=== PATIENT | female | born 1960 | race Caucasian/White ===

== ENCOUNTER 2016-07-05 14:35 | Emergency (ER) | payer OTHER ==
[~2016-07-05] VITALS: Ht 170.2 cm; Wt 119.1 kg
[2016-07-05 14:39] VITALS: BP 138/94; PULSE 104; RESP 18; O2SAT 99
--- NOTE | 2016-07-05 14:50 | ED.REPORT ---
HPI-Abd Pain F 40 and Over Date of Service Jul 05, 2016 ED Provider: History of Present Illness: upper abd pain ongoing for 3 days, frequent burping, no vomiting, worse with eating, primary care is min. normally healthy, chrons in remission for 15 years, 01/31 Nursing Notes Stated Complaint: ABD PAIN Chief Complaint: Female Abdominal Pain Nursing Notes Reviewed: Yes Allergies: Coded Allergies: Penicillins (Verified Allergy, Unknown, 07/05/16) General Time Seen by MD: 14:49 Chief Complaint Abdominal pain Hx Obtained From: Patient Sudden in Onset?: No Onset Occurred: 3 days ago Context of Onset: Eating Past Medical History Past Medical History Denies: Asthma Past Surgical History denies Smoking History Current Every Day Smoker (1 pack a day 35 years) Social History Alcohol Use: Denies alcohol use Drug Use: Denies drug use Other Social History: Occupation work at [employer] 07/05/2016 Review of Systems Basic Review of Systems Eyes: Vision NL, No discharge ENT: Hearing NL, No pain, No nasal congestion, No pharyngeal pain Hematologic: No bleeding, No bruising Endocrine: No cold intolerance, No heat intolerance, No weight gain, No weight loss Skin: No bruising, No rash, No itch Allergy / Immune: No allergy Neurologic: NL mental status, No weakness, No numbness Psychiatric: Normal thought content Physical Exam Vital Signs Vital Signs (First) Date Time Temp Pulse Resp B/P Pulse Ox O2 Delivery O2 Flow Rate FiO2 07/05/16 14:39 36.5 104 18 138/94 99 Room Air Initial VS: Reviewed, Vital signs normal Head / Eyes: Atraumatic, Normocephalic, PERRL ENT: Mucous membranes moist, Conjunctiva normal, No scleral icterus Neck: Supple, Non-tender, Full range of motion Lymphatic: No lymphadenopathy Extremities: Vascular intact, Neuro intact, No swelling, No tenderness Skin: Warm, Dry, No cyanosis Neurologic: Alert, Oriented, Nonfocal Psychiatric: Mood/affect normal, Behavior normal, Normal thought content General/Constitutional: Awake, Alert, No acute distress, Well appearing, Well developed, Well hydrated, Well nourished, Cooperative, Not toxic appearing Respiratory / Chest: Atraumatic, Breath sounds NL, Breath sounds = bilat, No respiratory distress Cardiovascular: Heart rate NL, Regular rhythm, Heart sounds NL, No gallop Abdomen: Atraumatic, Soft, Non-tender, McBurney's non-tender Tenderness/Guarding/Rebound: Positive: Tender diffuse Back: Atraumatic, Inspection NL, Full range of motion Head / Eyes: Atraumatic, Normocephalic, PERRL, EOMI Interpretation & Diagnostics Interpretation & Diagnostics: rgical changes and devices: None. Chest: Lungs are clear. Heart size is normal. No pleural effusions. No pneumoperitoneum. Abdomen: The bowel is gas-filled. No bowel distention. No suspicious calcifications. Visualized solid organ contours appear normal. Bones: No suspicious bony lesions. IMPRESSION: No acute cardiopulmonary findings. Gas-filled bowel. No findings to suggest obstruction or ileus. Dictated by: Tiny Dominguez M.D. on 07/05/2016 at 16:18 Lab Results Interpretation Result Diagram: 07/05/16 1514 07/05/16 1514 Test 07/05/16 15:14 White Blood Count 9.9th/mm3 (3.8-10.1) Red Blood Count 5.04mil/mm3 (3.90-5.20) Hemoglobin 14.0g/dL (12.0-15.6) Hematocrit 43.1% (35.0-46.0) Mean Corpuscular Volume 85.5fL (81-100) Mean Corpuscular Hemoglobin 27.8pg (27.0-35.0) Mean Corpuscular Hemoglobin Concent 32.5% (32.0-37.0) Red Cell Distribution Width 14.5% (12.3-15.4) Platelet Count 322bil/L (150-400) Neutrophils (%) (Auto) 64.7% (40-74) Lymphocytes (%) (Auto) 30.4% (14-46) Monocytes (%) (Auto) 2.9% (4-12) Eosinophils (%) (Auto) 1.4% (0-5) Basophils (%) (Auto) 0.5% (0-3) Sodium Level 140mEq/L (134-144) Potassium Level 4.5mEq/L (3.5-5.2) Chloride Level 101mEq/L (97-108) Carbon Dioxide Level 24mmol/L (18-29) Blood Urea Nitrogen 11mg/dL (6-24) Creatinine 0.74mg/dL (0.57-1.00) Estimat Glomerular Filtration Rate 117mL/min (>59) Glucose Level 104mg/dL (60-99) Lactic Acid Level 1.1mmol/L (0.4-2.0) Calcium Level 9.7mg/dL (8.5-10.1) Total Bilirubin 0.3mg/dL (0.0-1.2) Aspartate Amino Transf (AST/SGOT) 46U/L (0-50) Alanine Aminotransferase (ALT/SGPT) 57U/L (0-32) Alkaline Phosphatase 97U/L (25-150) Troponin T < 0.010ug/L (0.0-0.011) Total Protein 7.9g/dL (6.4-8.4) Albumin 4.3g/dL (3.4-5.0) Amylase Level 61U/L (28-100) Lipase 27U/L (13-60) X-Ray Abdominal Interpretation rgical changes and devices: None. Chest: Lungs are clear. Heart size is normal. No pleural effusions. No pneumoperitoneum. Abdomen: The bowel is gas-filled. No bowel distention. No suspicious calcifications. Visualized solid organ contours appear normal. Bones: No suspicious bony lesions. IMPRESSION: No acute cardiopulmonary findings. Gas-filled bowel. No findings to suggest obstruction or ileus. Dictated by: Tiny Dominguez M.D. on 07/05/2016 at 16:18 Discharge & Departure Primary Impression: Generalized abdominal pain Additional Impression: Abdominal distension, gaseous Disposition: Home Patient Instructions: Simethicone (By mouth) Additional Instructions: Your labs are normal. The Ultrasound did not show the gallbladder , it did show a large amount of gas. The x-ray shows a large amount of gas in your stomach and colon. Take 120 mg 4 times a day till the gas is cleared. Continue with burping as much as possible. Elevate your bum above the level of your heart. Use a warm heating pad t relax the muscles that wrap the colon. Do a liqued diet till you are feeling better. Please follwo with primary care as needed. REturn with any concerns. Referrals: Wilma Min MD (PCP) EDSupervising Provider for APC: Rudy Brambila MD copies to: Wilma Min MD, Sue ARNP Jul 05, 2016 14:50
[2016-07-05] MEDS ORDERED: HYDROmorphone 0.5 mg/0.5 mL iSecure Syringe IVPUSH PRN (15:00)
[2016-07-05] MEDS ORDERED: 0.9% Sodium Chloride 1,000 ML IV ONE (15:00)
[2016-07-05] MEDS ORDERED: Ondansetron 2 mg/mL 2 mL Inj IVPUSH ONE (15:00)
[2016-07-05 15:23] LABS: BASOPHILS % (AUTO) 0.5 % (0-3); EOSINOPHILS % (AUTO) 1.4 % (0-5); MONOCYTES % (AUTO) 2.9 % (4-12); Mean Corpuscular Hemoglobin 27.8 pg (27.0-35.0); Mean Corpuscular Volume 85.5 fL (81-100); NEUTROPHILS % (AUTO) 64.7 % (40-74); Platelet Count 322 bil/L (150-400)
[2016-07-05 15:50] LABS: Lipase 27 U/L (13-60)
[2016-07-05 15:55] LABS: TROPONIN T < 0.010 ug/L (0.0-0.011)
--- NOTE | 2016-07-05 16:17 | DRSVH ---
PROCEDURE: US ABDOMEN ([id number]) INDICATIONS: right upper quadrant pain TECHNIQUE: Real-time scanning was performed of the abdominal and retroperitoneal organs, with image documentatio n. COMPARISON: None. FINDINGS: Liver: The liver is 21 cm in length and demonstrates increased echotexture. Gallbladder: The gallbladder is nonvisualized due to overlying bowel gas. Biliary ducts: Intrahepatic bile ducts are non-dilated. Extrahepatic bile duct caliber measures 6.0 mm. Normal is 6-7 mm or less in diameter, or 10 mm or less post-cholecystectomy. Pancreas: The pancreas is poorly visualized. Spleen: Spleen is normal in size and homogeneous in echotexture. Kidneys: Kidneys are normal in size and echotexture. Right kidney measures 10.8 cm long; left kidne y measures 11.3 cm long. No hydronephrosis or nephrolithiasis. No solid masses. Aorta: The aorta is nonvisualized due to overlying bowel gas. Iliacs: The iliacs were not visualized. IVC: Intrahepatic inferior vena cava is patent. Miscellaneous: No free abdominal fluid. IMPRESSION: 1. Limited study. 2. Hepatomegaly and increased echogenicity suggesting hepatic steatosis although other sources of hep atocellular dysfunction cannot be excluded. 3. Nonvisualization of the gallbladder. Cholelithiasis, choledocholithiasis, and acute cholecystitis cannot be excluded. Dictated by: Tiny Dominguez M.D. on 07/05/2016 at 16:15 Approved by: Tiny Dominguez M.D. on 07/05/2016 at 16:15
--- NOTE | 2016-07-05 16:20 | DRSVH ---
PROCEDURE: X-RAY ACUTE ABDOMINAL SERIES ([id number]) INDICATIONS: right upper quadrant pain TECHNIQUE: One view chest and two views of the abdomen were acquired. COMPARISON: None. FINDINGS: Surgical changes and devices: None. Chest: Lungs are clear. Heart size is normal. No pleural effusions. No pneumoperitoneum. Abdomen: The bowel is gas-filled. No bowel distention. No suspicious calcifications. Visualized leatha d organ contours appear normal. Bones: No suspicious bony lesions. IMPRESSION: No acute cardiopulmonary findings. Gas-filled bowel. No findings to suggest obstruction o r ileus. Dictated by: Tiny Dominguez M.D. on 07/05/2016 at 16:18 Approved by: Tiny Dominguez M.D. on 07/05/2016 at 16:18
[2016-07-05 17:32] VITALS: BP 135/80; PULSE 79; RESP 20; O2SAT 99
== END 2016-07-05 17:34 | disposition home or self-care (01) ==
LOC: SED 14:35
DX: R10.84 Generalized abdominal pain (principal); R14.0 Abdominal distension (gaseous); K21.9 Gastro-esophageal reflux disease without esophagitis; F17.200 Nicotine dependence, unspecified, uncomplicated; Z87.19 Personal history of other diseases of the digestive system; Z88.0 Allergy status to penicillin
CPT/HCPCS: 74022; 76700; 80053; 82150; 83605; 83690; 84484; 85025; 93005; 96361; 96374; 96375; 99285; J1170; J2405; J7030